=== PATIENT | male | born 1995 | race Caucasian/White ===

== ENCOUNTER → 2023-06-11 08:54 | Outpatient (REF) | payer OTHER, SELFPAY | LOC: MRI 3T 08:54 | PROVIDERS: ATTENDING PHYSICIAN Internal Medicine Gastroenterology | DX: K50.813 Crohn's disease of both small and large intestine with fistula (principal) | CPT/HCPCS: 72197; 74183; A9575 ==

== ENCOUNTER 2024-11-13 06:29 | Day surgery (SDC) | payer BC, SELFPAY | END 2024-11-13 14:34 | disposition home or self-care (01) | LOC: GI 06:29 | PROVIDERS: ATTENDING PHYSICIAN Internal Medicine Gastroenterology | DX: K50.80 Crohn's disease of both small and large intestine without complications (principal); K64.9 Unspecified hemorrhoids | CPT/HCPCS: 45380; 88305 ==